=== PATIENT | male | born 1995 | race Caucasian/White ===

== ENCOUNTER 2019-03-05 20:21 | Emergency (ER) | payer OTHER ==
[2019-03-05] MEDS ORDERED: TETRACAINE HCL 0.5% 4ML OPTH ONE (20:38)
[2019-03-05] MEDS ORDERED: FLUORESCEIN SODIUM 1 MG/WRAP ONE (20:38)
[2019-03-05] MEDS ORDERED: TRAMADOL HCL 50 MG TAB ONE (21:18)
--- NOTE | 2019-03-05 22:34 | EDPHYS ---
Physician Documentation [facility] Name: Dirk Segovia Age: 23 yrs Sex: Male : 1995 Arrival Date: 03/05/2019 Time: 20:22 Bed 25 Private MD: ED Physician Gallo Elder HPI: 03/05 20:32 This 23 yrs old Male presents to ER via Law Enforcement with complaints of pm1 Left Eye Injury. 20:32 The patient is experiencing pain, The patient sustained an abrasion, to the left eye, pm1 caused by possible an elbow while playing soccer . Onset: The symptoms/episode began/occurred today. Aggravated by nothing. Alleviated by covering eye. Associated signs and symptoms: Pertinent negatives: headache, LOC, headache, neck pain. Patient does not utilize any form of vision correction Patient reports that he legally blind in his left eye. It is unknown whether or not the patient has recently seen a physician, reports tetanus is up to date, less than 5 years. Patient is an inmate. Was playing soccer and he and other players were going for a loose ball. He believes that he was accidentally elbowed in the left eye. 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 Was supposed patch his right pm1 eye as a child to strengthen his left eye and wear corrective lenses for his left eye. Did neither one resulting in his legal blindness to left eye. Historical: - Allergies: 20:33 No Known Allergies; mg2 - Home Meds: 20:33 None [Active]; mg2 - PMHx: 20:33 None; mg2 - PSHx: 20:33 None; mg2 - Immunization history:: Flu vaccine status is unknown. - Social history:: Smoking status: unknown Patient/guardian denies using alcohol, street drugs, IV drugs. - Ebola Screening: : No symptoms or risks identified at this time. ROS: 20:32 Constitutional: Negative for fever, chills, and weight loss. pm1 20:32 ENT: Negative for injury, pain, and discharge, Neck: Negative for injury, pain, and swelling, Cardiovascular: Negative for chest pain, palpitations, and edema, Respiratory: Negative for shortness of breath, cough, wheezing, and pleuritic chest pain, Back: Negative for injury and pain, MS/Extremity: Negative for injury and deformity, Skin: Negative for injury, rash, and discoloration, Neuro: Negative for headache, weakness, numbness, tingling, and seizure. 20:32 Eyes: Positive for pain, Negative for vision loss. Exam: 20:32 Constitutional: This is a well developed, well nourished patient who is awake, alert, pm1 and in no acute distress. Head/Face: Normocephalic, atraumatic. 20:32 Neck: Trachea midline, no thyromegaly or masses palpated, and no cervical lymphadenopathy. Supple, full range of motion without nuchal rigidity, or vertebral point tenderness. No Meningismus. Chest/axilla: Normal chest wall appearance and motion. Nontender with no deformity. No lesions are appreciated. Cardiovascular: Regular rate and rhythm with a normal S1 and S2. No gallops, murmurs, or rubs. Normal PMI, no JVD. No pulse deficits. Respiratory: Lungs have equal breath sounds bilaterally, clear to auscultation and percussion. No rales, rhonchi or wheezes noted. No increased work of breathing, no retractions or nasal flaring. Back: No spinal tenderness. No costovertebral tenderness. Full range of motion. Skin: Warm, dry with normal turgor. Normal color with no rashes, no lesions, and no evidence of cellulitis. MS/ Extremity: Pulses equal, no cyanosis. Neurovascular intact. Full, normal range of motion. 20:32 ENT: External ear(s): are unremarkable, Ear canal(s): are normal, TM's: are normal, Nose: External nose: contusion is noted, Nasal septum: is midline, no septal hematoma appreciated, Mouth: is normal, Posterior pharynx: is normal. 20:32 Neuro: Orientation: is normal, Motor: is normal, moves all fours, Gait: is steady, at a normal pace, without difficulty. 21:04 Eyes: Periorbital structures: swelling, that is mild, on the left lower eyelid, pm1 Pupils: no acute changes, normal size, normal reaction to light, Extraocular movements: intact throughout, Conjunctiva: injected, in the left eye, Corneas: abrasion, that is moderate sized, approximately 4 mm(s), on the left, central, foreign body, is not appreciated, a fluorescein strip employed to appreciate the findings, Sclera: no appreciated abnormality, Anterior chamber: normal, no hyphema. Vital Signs: 20:31 BP 126 / 61; Pulse 55; Resp 18; Temp 98.3; Pulse Ox 100% on R/A; Weight 77.11 kg; mg2 Height 5 ft. 11 in. (180.34 cm); Pain 6/10; 22:33 BP 118 / 68; Pulse 55; Resp 18; Temp 98; Pulse Ox 100% on R/A; mg2 20:31 Body Mass Index 23.71 (77.11 kg, 180.34 cm) mg2 Visual Acuity: 22:34 Left Eye Visual acuity 20/200, Pupil size 2 mm, Normal, Brisk; Right Eye Visual acuity mg2 20/20, Pupil size 2 mm, Normal, Brisk, React To Light, Reactive To Accomodation; Without Lenses; MDM: 20:32 Patient medically screened. pm1 21:25 Data reviewed: vital signs. Data interpreted: Pulse oximetry: on room air is 100 %. pm1 Interpretation: normal. 22:30 Counseling: I had a detailed discussion with the patient and/or guardian regarding: the pm1 historical points, exam findings, and any diagnostic results supporting the discharge/admit diagnosis, radiology results, the need for outpatient follow up, for definitive care, an ENT specialist, an opthalmologist, to return to the emergency department if symptoms worsen or persist or if there are any questions or concerns that arise at home. 22:30 ED course: informed patient that I would like him to be seen by the eye doctor on pm1 Thursday or Thursday for evaluation. Will discharge to home with eye antibiotic ointment, antibiotic by mouth for nasal fracture, and NSAID for pain. Unable to give anything stronger than NSAID since he is in longterm. 03/05 20:32 Order name: CT Facial Bones W/O Con pm1 03/05 20:32 Order name: CT Head Brain wo Cont pm03/05 20:32 Order name: Visual Acuity; Complete Time: 20:39 pm1 03/05 20:32 Order name: Eye Tray; Complete Time: 20:39 pm1 03/05 20:32 Order name: Fluoresene Opth strip; Complete Time: 20:42 pm1 Administered Medications: 21:08 Drug: Tetracaine Drops 0.5 % 1 drops {Note: applied by the provider.} Route: mg2 Ophthalmic; Site: left eye; 21:17 Drug: traMADol 50 mg Route: PO; mg2 22:18 Follow up: Response: No adverse reaction mg2 22:55 Drug: ERYTHromycin Ointment 1 application Route: Ophthalmic; Site: left eye; mg2 22:55 Follow up: Response: No adverse reaction; Medication administered at discharge. mg2 22:56 Drug: Motrin 800 mg Route: PO; mg2 22:56 Follow up: Response: No adverse reaction; Medication administered at discharge. mg2 Disposition: 03/06 07:01 Co-signature as Attending Physician, Gallo Elder MD Available for consultation at ps1 all times. Signing chart for administrative purposes. Not an endorsement of care. . Disposition: 03/05/19 22:32 Discharged to Home. Impression: Injury of conjunctiva and corneal abrasion without foreign body, left eye, Fracture of nasal bones. - Condition is Stable. - Discharge Instructions: Corneal Abrasion, Nasal Fracture. - Prescriptions for Augmentin 875- 125 mg Oral Tablet - take 1 tablet by ORAL route every 12 hours for 10 days; 20 tablet. Diclofenac Sodium 75 mg Oral Tablet, Delayed Release (E.C.) - take 1 tablet by ORAL route 2 times per day As needed; 30 tablet. Erythromycin 5 mg/gram (0.5 %) Ophthalmic Ointment - apply 1 ribbon by OPHTHALMIC route every 8 hours; 1 tube. - Medication Reconciliation Form, Thank You Letter, Antibiotic Education, Prescription Opioid Use form. - Follow up: Emergency Department; When: As needed; Reason: Worsening of condition. Follow up: Private Physician; When: 2 - 3 days; Reason: Recheck today's complaints, Continuance of care, Re-evaluation by your physician. - Problem is new. - Symptoms have improved. Signatures: Dispatcher [employer] EDMS Helio Queen FIREWALL ADMINISTRATOR FIREWALL ADMINISTRATOR pm1 Gallo Elder MD MD ps1 Luis Armando Rooney RN RN mg2 Corrections: (The following items were deleted from the chart) 03/05 23:02 22:32 03/05/2019 22:32 Discharged to Home. Impression: Injury of conjunctiva and mg2 corneal abrasion without foreign body, left eyeFracture of nasal bones. Condition is Stable. Forms are Medication Reconciliation Form, Thank You Letter, Antibiotic Education, Prescription Opioid Use. Follow up: Emergency Department; When: As needed; Reason: Worsening of condition. Follow up: Private Physician; When: 2 - 3 days; Reason: Recheck today's complaints, Continuance of care, Re-evaluation by your physician. Problem is new. Symptoms have improved. pm1
--- NOTE | 2019-03-05 22:34 | ER ---
Nurse's Notes [facility] Name: Dirk Segovia Age: 23 yrs Sex: Male : 1995 Arrival Date: 03/05/2019 Time: 20:22 Bed 25 Private MD: Diagnosis: Fracture of nasal bones;Injury of conjunctiva and corneal abrasion without foreign body, left eye Presentation: 03/05 20:29 Presenting complaint: Patient states: i was playing soccer at 3 pm today when somebody mg2 hit my left eye. Transition of care: correctional facility. Mechanism of Injury: blow to the eye. The patient denies any loss of vision. Onset of symptoms was March 05, 2019 at 15:00. Risk Assessment: Do you want to hurt yourself or someone else? Patient reports no desire to harm self or others. Initial Sepsis Screen: Does the patient meet any 2 criteria? No. Patient's initial sepsis screen is negative. Does the patient have a suspected source of infection? No. Patient's initial sepsis screen is negative. Care prior to arrival: None. 20:29 Method Of Arrival: Law Enforcement: [place] [employer] [facility] mg2 20:29 Acuity: LONNIE 3 mg2 Historical: - Allergies: 20:33 No Known Allergies; mg2 - Home Meds: 20:33 None [Active]; mg2 - PMHx: 20:33 None; mg2 - PSHx: 20:33 None; mg2 - Immunization history:: Flu vaccine status is unknown. - Social history:: Smoking status: unknown Patient/guardian denies using alcohol, street drugs, IV drugs. - Ebola Screening: : No symptoms or risks identified at this time. Screenin:33 Abuse screen: Denies threats or abuse. Denies injuries from another. Nutritional mg2 screening: No deficits noted. Tuberculosis screening: No symptoms or risk factors identified. Fall Risk None identified. Assessment: 22:28 General: Appears in no apparent distress. comfortable, Behavior is calm, cooperative. mg2 Pain: Complains of pain in left eye. Neuro: Level of Consciousness is awake, alert, obeys commands, Oriented to person, place, time, situation. Cardiovascular: Capillary refill < 3 seconds Patient's skin is warm and dry. Respiratory: Airway is patent Respiratory effort is even, unlabored, Respiratory pattern is regular, symmetrical. GI: No signs and/or symptoms were reported involving the gastrointestinal system. : No signs and/or symptoms were reported regarding the genitourinary system. EENT: Eyes pain and abrasion noted. EENT: Sclera/Cornea w/ abrasion noted on left eye. Derm: Skin is intact, is healthy with good turgor, Skin is pink, warm \T\ dry. normal. Musculoskeletal: Circulation, motion, and sensation intact. Capillary refill < 3 seconds. Injury Description: Abrasion. Vital Signs: 20:31 BP 126 / 61; Pulse 55; Resp 18; Temp 98.3; Pulse Ox 100% on R/A; Weight 77.11 kg; mg2 Height 5 ft. 11 in. (180.34 cm); Pain 6/10; 22:33 BP 118 / 68; Pulse 55; Resp 18; Temp 98; Pulse Ox 100% on R/A; mg2 20:31 Body Mass Index 23.71 (77.11 kg, 180.34 cm) mg2 Visual Acuity: 22:34 Left Eye Visual acuity 20/200, Pupil size 2 mm, Normal, Brisk; Right Eye Visual acuity mg2 20/20, Pupil size 2 mm, Normal, Brisk, React To Light, Reactive To Accomodation; Without Lenses; ED Course: 20:22 Patient arrived in ED. ds1 20:29 Luis Armando Rooney, CHAD is Primary Nurse. mg2 20:30 Helio Queen NP is PHCP. pm1 20:30 Gallo Elder MD is Attending Physician. pm1 20:31 Triage completed. mg2 20:33 Arm band placed on. mg2 20:33 Patient has correct armband on for positive identification. mg2 21:40 CT Facial Bones W/O Con In Process Unspecified. EDMS 21:40 CT Head Brain wo Cont In Process Unspecified. EDMS 22:34 Assist provider with eye exam of left eye. using fluorescein stain, Performed by mg2 Helio Queen NP Patient tolerated well. Patient did not have IV access during this emergency room visit. Administered Medications: 21:08 Drug: Tetracaine Drops 0.5 % 1 drops {Note: applied by the provider.} Route: mg2 Ophthalmic; Site: left eye; 21:17 Drug: traMADol 50 mg Route: PO; mg2 22:18 Follow up: Response: No adverse reaction mg2 22:55 Drug: ERYTHromycin Ointment 1 application Route: Ophthalmic; Site: left eye; mg2 22:55 Follow up: Response: No adverse reaction; Medication administered at discharge. mg2 22:56 Drug: Motrin 800 mg Route: PO; mg2 22:56 Follow up: Response: No adverse reaction; Medication administered at discharge. mg2 Outcome: 22:32 Discharge ordered by . pm1 23:01 Discharged to Law Enforcement mg2 23:01 Condition: good 23:01 Discharge instructions given to patient, police, Instructed on discharge instructions, follow up and referral plans. medication usage, Demonstrated understanding of instructions, follow-up care, medications, Prescriptions given X 3. 23:02 Patient left the ED. mg2 Signatures: Dispatcher [employer] EDID Christelle Shaw ds1 Helio Queen NP SCREEN VENT BINDER pm1 Luis Armando Rooney, CHAD RN mg2
[2019-03-05] MEDS ORDERED: ERYTHROMYCIN 1 APPL/1 GM TUBE ONE (22:39)
[2019-03-05] MEDS ORDERED: IBUPROFEN 400 MG TAB ONE (22:55)
[2019-03-05 23:09] VITALS: O2SAT 100
[2019-03-05 23:10] VITALS: BP 118/68; TEMP 98
--- NOTE | 2019-03-07 12:18 | RAD REPORT ---
EXAM DESCRIPTION: Head Brain Wo Cont (accession [id number]) CLINICAL HISTORY: HEADACHE TECHNIQUE: Contiguous axial CT images obtained through the brain without IV contrast. Coronal and sa gittal reformatted images were provided. This exam was performed according to our departmental dose-optimization program, which includes autom ated exposure control, adjustment of the mA and/or kV according to patient size and/or use of iterati ve reconstruction technique. COMPARISON: None available for comparison FINDINGS: Brain: No significant white matter changes. No focal mass effect. Link-white matter differ entiation is within normal limits. No hemorrhage. Ventricles: No ventriculomegaly or midline shift. Extra-axial spaces: No extra-axial collection or hemorrhage. Paranasal sinuses and mastoid air cells: Mild pansinus mucosal thickening. Vessels: Unremarkable Bones: Medially displaced left nasal bone fracture. Soft tissues: Mild left paranasal soft tissue swelling. IMPRESSION: No acute intracranial or extra-axial abnormality. EXAM DESCRIPTION: Facial Bones W/ Mpr (accession [id number]) CLINICAL HISTORY: Left eye trauma TECHNIQUE: Contiguous axial images obtained through the face and paranasal sinuses without IV contra st. Coronal and sagittal reformatted images were provided. This exam was performed according to our departmental dose-optimization program, which includes autom ated exposure control, adjustment of the mA and/or kV according to patient size and/or use of iterati ve reconstruction technique. COMPARISON: None available for comparison FINDINGS: Bones: Medially displaced left nasal bone fracture. Joints: No dislocation. Paranasal sinuses and mastoid air cells: Mild pansinus mucosal thickening with areas of bubbly opacif ication. Orbits: Globes appear intact. No intraconal or extraconal abnormality. Optic nerves appear unremark able. Soft tissues: Mild left perinasal soft tissue swelling. IMPRESSION: Left nasal bone fracture. Electronically signed by: Sreekanth Lee MD 03/05/2019 10:07 PM VOCATIONAL NURSE LVN Due to temporary technical issues with the PACS/Fluency reporting system, reports are being signed by the in house radiologist as a courtesy to ensure prompt reporting. The interpreting radiologist is f ully responsible for the content of the report.
--- NOTE | 2019-03-07 12:20 | RAD REPORT ---
EXAM DESCRIPTION: Facial Bones W/ Mpr CLINICAL HISTORY: HEADACHE TECHNIQUE: Contiguous axial CT images obtained through the brain without IV contrast. Coronal and sa gittal reformatted images were provided. This exam was performed according to our departmental dose-optimization program, which includes autom ated exposure control, adjustment of the mA and/or kV according to patient size and/or use of iterati ve reconstruction technique. COMPARISON: None available for comparison FINDINGS: Brain: No significant white matter changes. No focal mass effect. Link-white matter differ entiation is within normal limits. No hemorrhage. Ventricles: No ventriculomegaly or midline shift. Extra-axial spaces: No extra-axial collection or hemorrhage. Paranasal sinuses and mastoid air cells: Mild pansinus mucosal thickening. Vessels: Unremarkable Bones: Medially displaced left nasal bone fracture. Soft tissues: Mild left paranasal soft tissue swelling. IMPRESSION: No acute intracranial or extra-axial abnormality. EXAM DESCRIPTION: Facial Bones W/ Mpr (accession [id number]) CLINICAL HISTORY: Left eye trauma TECHNIQUE: Contiguous axial images obtained through the face and paranasal sinuses without IV contra st. Coronal and sagittal reformatted images were provided. This exam was performed according to our departmental dose-optimization program, which includes autom ated exposure control, adjustment of the mA and/or kV according to patient size and/or use of iterati ve reconstruction technique. COMPARISON: None available for comparison FINDINGS: Bones: Medially displaced left nasal bone fracture. Joints: No dislocation. Paranasal sinuses and mastoid air cells: Mild pansinus mucosal thickening with areas of bubbly opacif ication. Orbits: Globes appear intact. No intraconal or extraconal abnormality. Optic nerves appear unremark able. Soft tissues: Mild left perinasal soft tissue swelling. IMPRESSION: Left nasal bone fracture. Electronically signed by: Sreekanth Lee MD 03/05/2019 10:07 PM AXLE POLISHER Due to temporary technical issues with the PACS/Fluency reporting system, reports are being signed by the in house radiologist as a courtesy to ensure prompt reporting. The interpreting radiologist is f ully responsible for the content of the report.
== END 2019-03-05 23:02 | disposition home or self-care (01) ==
LOC: ER 20:21
DX: S02.2XXA Fracture of nasal bones, initial encounter for closed fracture (principal); S05.02XA Injury of conjunctiva and corneal abrasion without foreign body, left eye, initial encounter; W21.9XXA Striking against or struck by unspecified sports equipment, initial encounter; Y93.66 Activity, soccer
CPT/HCPCS: 70450; 70486; 76377; 99284